=== PATIENT | male | born 1950 ===

== ENCOUNTER 2019-12-08 16:06 | Emergency (ER) | payer MEDICARE, OTHER ==
[~2019-12-08] VITALS: Ht 177.8 cm; Wt 80.0 kg
[2019-12-08 16:57] VITALS: BP 134/76
== END 2019-12-08 17:12 | disposition home or self-care (01) ==
LOC: EMS 16:06
DX: J45.909 Unspecified asthma, uncomplicated (principal); F17.210 Nicotine dependence, cigarettes, uncomplicated; F11.90 Opioid use, unspecified, uncomplicated
CPT/HCPCS: 71045-TC